=== PATIENT | male | born 1960 | race Caucasian/White ===

== ENCOUNTER 2019-02-13 09:48 | Outpatient (CLI) | payer OTHER, SELFPAY ==
[2019-02-13 12:17] LABS: TSH 12.48 uIU/mL (0.358-3.74)
== END 2019-02-13 10:08 ==
PROVIDERS: PCP Family Medicine; Visit Provider Family Medicine
DX: C73 Malignant neoplasm of thyroid gland (principal); E03.9 Hypothyroidism, unspecified
CPT/HCPCS: 36415; 84443

== ENCOUNTER 2020-01-08 07:31 | Outpatient (CLI) | payer OTHER, SELFPAY ==
[2020-01-08 21:31] LABS: T3,Free 3.5 pg/mL (2.8-5.3)
== END 2020-01-08 07:51 ==
PROVIDERS: PCP Family Medicine; Visit Provider Family Medicine
DX: C73 Malignant neoplasm of thyroid gland (principal); E03.9 Hypothyroidism, unspecified
CPT/HCPCS: 36415; 84481

== ENCOUNTER 2021-02-05 11:53 | Outpatient (REF) | payer OTHER, SELFPAY ==
[2021-02-05 13:12] LABS: Calculated LDL 141 mg/dL (<100); Cholesterol 222 mg/dL (<200); HDL Cholesterol 29 mg/dL (40-60); TSH 3.46 uIU/mL (0.36-3.74); Triglyceride 260 mg/dL (<150)
[2021-02-05 13:29] LABS: FREE T4 1.17 ng/dL (0.76-1.46)
== END 2021-02-05 11:54 | disposition home or self-care (01) ==
LOC: LBN 11:53
PROVIDERS: PCP Family Medicine; Visit Provider Physician Assistant
DX: Z00.00 Encounter for general adult medical examination without abnormal findings (principal); E03.9 Hypothyroidism, unspecified; E78.89 Other lipoprotein metabolism disorders
CPT/HCPCS: 80061; 84439; 84443

== ENCOUNTER 2022-08-02 15:48 | Outpatient (REF) | payer OTHER, SELFPAY ==
[2022-08-02 20:21] LABS: ALT 33 U/L (16-63); AST 24 U/L (15-37); Alkaline Phosphatase 54 U/L (46-116); Anion Gap 12.4 mmol/L (3-11); BUN 19 mg/dL (7-18); Bilirubin, Total 0.7 mg/dL (0.2-1.0); CO2 24.6 mmol/L (21.0-32.0); Calcium 8.8 mg/dL (8.5-10.1); Calculated LDL 137 mg/dL (<100); Chloride 102 mmol/L (98-107); Cholesterol 202 mg/dL (<200); Estimated GFR 84.05 (mL/min/1.73m2); Glucose 82 mg/dL (74-106); HDL Cholesterol 31 mg/dL (40-60); Potassium 3.6 mmol/L (3.5-5.1); Sodium 139 mmol/L (136-145); TSH (W/Ref FT4) 5.59 uIU/mL (0.36-3.74); Total Protein 7.4 g/dL (6.4-8.2); Triglyceride 173 mg/dL (<150)
[2022-08-02 20:53] LABS: FREE T4 1.11 ng/dL (0.76-1.46)
== END 2022-08-02 15:49 | disposition home or self-care (01) ==
LOC: NCHCN 15:48
PROVIDERS: Visit Provider Nurse Practitioner Family
DX: C73 Malignant neoplasm of thyroid gland (principal); E03.9 Hypothyroidism, unspecified; R89.0 Abnormal level of enzymes in specimens from other organs, systems and tissues; E78.5 Hyperlipidemia, unspecified
CPT/HCPCS: 80053; 80061; 84439; 84443

== ENCOUNTER 2022-12-07 16:30 | Outpatient (REF) | payer OTHER, SELFPAY ==
[2022-12-07 17:35] LABS: TSH (W/Ref FT4) 1.44 uIU/mL (0.36-3.74)
== END 2022-12-07 16:31 | disposition home or self-care (01) ==
LOC: NCHCN 16:30
PROVIDERS: Visit Provider Nurse Practitioner Family
DX: E03.9 Hypothyroidism, unspecified (principal)
CPT/HCPCS: 84443

== ENCOUNTER 2023-09-08 19:32 | Outpatient (REF) | payer OTHER, SELFPAY ==
[2023-09-08 16:13] LABS: ALT 35 U/L (16-63); AST 24 U/L (15-37); Albumin 4.2 g/dL (3.4-5.0); Alkaline Phosphatase 57 U/L (46-116); Anion Gap 10.8 mmol/L (3-11); BUN 15 mg/dL (7-18); Bilirubin, Total 0.5 mg/dL (0.2-1.0); CO2 25.2 mmol/L (21.0-32.0); CREATININE 0.9 mg/dL (0.70-1.30); Calcium 9.2 mg/dL (8.5-10.1); Calculated LDL 93 mg/dL (<100); Chloride 105 mmol/L (98-107); Cholesterol 139 mg/dL (<200); Estimated GFR 94.78 (mL/min/1.73m2); Glucose 95 mg/dL (74-106); HDL Cholesterol 34 mg/dL (40-60); Potassium 4.2 mmol/L (3.5-5.1); Sodium 141 mmol/L (136-145); TSH (W/Ref FT4) 1.13 uIU/mL (0.36-3.74); Total Protein 7.3 g/dL (6.4-8.2); Triglyceride 62 mg/dL (<150)
== END 2023-09-08 19:33 | disposition home or self-care (01) ==
LOC: NCHCN 19:32
PROVIDERS: Visit Provider Nurse Practitioner Family
DX: E03.9 Hypothyroidism, unspecified (principal); E78.5 Hyperlipidemia, unspecified; N40.1 Benign prostatic hyperplasia with lower urinary tract symptoms; G47.33 Obstructive sleep apnea (adult) (pediatric); Z00.00 Encounter for general adult medical examination without abnormal findings
CPT/HCPCS: 80053; 80061; 84443

== ENCOUNTER 2024-09-12 10:47 | Outpatient (REF) | payer MEDICARE, SELFPAY ==
[2024-09-12 15:38] LABS: HCT 47.1 % (40.0-50.0); HGB 16.5 g/dL (13.5-17.5); MCH 32.6 pg (27.0-33.0); MCV 93 fL (80-95); MPV 10.3 fL (8.0-11.0); Platelet Count 223 10^3/uL (130-400); RBC 5.06 10^6/uL (4.36-5.78); RDW 12.9 % (11.8-14.1); RDW-SD 43.9 fL; WBC 5.58 10^3/uL (4.4-10.8)
[2024-09-12 16:41] LABS: Hemoglobin A1C 5.3 % (<5.7)
[2024-09-12 16:50] LABS: ALT 31 U/L (16-63); AST 27 U/L (15-37); Alkaline Phosphatase 59 U/L (46-116); Anion Gap 11.1 mmol/L (3-11); BUN 17 mg/dL (7-18); Bilirubin, Total 0.85 mg/dL (0.2-1.0); CO2 24.9 mmol/L (21.0-32.0); CREATININE 0.9 mg/dL (0.70-1.30); Calcium 9.3 mg/dL (8.5-10.1); Calculated LDL 106 mg/dL (<100); Chloride 107 mmol/L (98-107); Cholesterol 159 mg/dL (<200); Estimated GFR 94.19 (mL/min/1.73m2); Glucose 96 mg/dL (74-106); HDL Cholesterol 38 mg/dL (40-60); Sodium 143 mmol/L (136-145); TSH (W/Ref FT4) 0.62 uIU/mL (0.36-3.74); Total Protein 7.3 g/dL (6.4-8.2); Triglyceride 78 mg/dL (<150)
[2024-09-12 22:41] LABS: PSA, Screening 0.8 ng/mL (<=4.5)
[2024-09-13 09:42] LABS: Hepatitis C Ab w Rflx HCV PCR Negative (Negative)
== END 2024-09-12 10:48 | disposition home or self-care (01) ==
LOC: NCHCN 10:47
PROVIDERS: Visit Provider Nurse Practitioner Family
DX: Z00.00 Encounter for general adult medical examination without abnormal findings (principal)
CPT/HCPCS: 80053; 80061; 84153; 85027; 86803; 83036; 84443

== ENCOUNTER 2025-09-17 15:39 | Outpatient (REF) | payer MEDICARE, SELFPAY ==
[2025-09-17 19:44] LABS: ALT 24 U/L (10-49); AST 29 U/L (<34); Albumin 4.2 g/dL (3.4-5.0); Alkaline Phosphatase 55 U/L (46-116); Anion Gap 9.2 mmol/L (3-11); BUN 21 mg/dL (9-23); Bilirubin, Total 0.60 mg/dL (0.2-1.2); CO2 24.8 mmol/L (20.0-31.0); Calcium 8.9 mg/dL (8.3-10.6); Chloride 108 mmol/L (98-107); Glucose 94 mg/dL (74-106); Potassium 3.4 mmol/L (3.5-5.1); Sodium 142 mmol/L (136-145); Total Protein 6.9 g/dL (5.7-8.2)
[2025-09-17 19:46] LABS: TSH 0.94 uIU/mL (0.55-4.78)
[2025-09-18 18:25] LABS: PSA, Screening 1.1 ng/mL (<=4.5)
== END 2025-09-17 15:40 | disposition home or self-care (01) ==
LOC: NCHCN 15:39
PROVIDERS: Visit Provider Nurse Practitioner Family
DX: Z12.5 Encounter for screening for malignant neoplasm of prostate (principal); E03.9 Hypothyroidism, unspecified
CPT/HCPCS: 80053; 84153; 84443

== ENCOUNTER → 2025-10-28 09:14 | Outpatient (BNVA) | payer MEDICARE, SELFPAY | PROVIDERS: Referring Provider Nurse Practitioner Family; Visit Provider Surgery | DX: Z12.11 Encounter for screening for malignant neoplasm of colon (principal); R19.5 Other fecal abnormalities | CPT/HCPCS: S0285 ==